=== PATIENT | female | born 1995 | race Caucasian/White ===

== ENCOUNTER 2022-06-22 14:30 | Outpatient (CLI) | payer OTHER | END 2022-06-22 16:35 | disposition home or self-care (01) | LOC: PRENATAL 14:30 | PROVIDERS: ATTEND Obstetrics & Gynecology Maternal & Fetal Medicine | DX: O35.9XX0 Maternal care for (suspected) fetal abnormality and damage, unspecified, not applicable or unspecified (principal); O35.3XX0 Maternal care for (suspected) damage to fetus from viral disease in mother, not applicable or unspecified; Z3A.20 20 weeks gestation of pregnancy ==